=== PATIENT | male | born 1960 | race Hispanic/Latino ===

== ENCOUNTER 2016-08-01 16:42 | Emergency (ER) | payer MEDICARE ==
[2016-08-01] MEDS ORDERED: NORCO 7.5/325 PO ONE (16:57)
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
[2016-08-01] MEDS ORDERED: DIPRIVAN 10 MG/ML IV ONE (17:47)
[2016-08-01] MEDS ORDERED: KETALAR IV ONE (17:47)
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
[2016-08-01] MEDS ORDERED: MORPHINE IV ONE (18:01)
[2016-08-01] MEDS ORDERED: TORADOL IV ONE (18:01)
--- NOTE | 2016-08-01 18:02 | XRay Report ---
FINAL REPORT EXAM: XR WRIST 3 LT HISTORY: fell back on wrist TECHNIQUE: 3 views of the left wrist PRIORS: None. FINDINGS: There is a complex comminuted fracture of the distal radius involving the metaphysis and extending to the articular surface. There is displacement and angulation along with foreshortening and impaction at the fracture site. There is associated positive ulnar variance. A small osseous fragment in the region of the triangular fibrocartilage may be an avulsion fracture from the ulnar styloid process. No definite evidence of dislocation. IMPRESSION: Complex distal radius fracture with associated positive ulnar variance Suggestion of displaced avulsion fracture from the ulnar styloid process
[2016-08-01 18:37] VITALS: BP 140/81
== END 2016-08-01 19:00 | disposition home or self-care (01) ==
LOC: ED 16:42
DX: S52.502A Unspecified fracture of the lower end of left radius, initial encounter for closed fracture (principal); W01.0XXA Fall on same level from slipping, tripping and stumbling without subsequent striking against object, initial encounter; Y93.9 Activity, unspecified; Y92.9 Unspecified place or not applicable; Y99.9 Unspecified external cause status
CPT/HCPCS: 29125; 73110; 96374; 96375; 99283; J1885; J2270